=== PATIENT | male | born 1990 | race Caucasian/White ===

== ENCOUNTER 2024-11-08 12:40 | Emergency (ER) | payer OTHER, SELFPAY ==
[2024-11-08 12:51] VITALS: BP 139/83; PULSE 75; RESP 16; TEMP 36.3; O2SAT 100
--- NOTE | 2024-11-08 13:34 | ED_ITS ---
HPI - Extremity Problem General Chief complaint: Extremity Problem,Nontraumatic Stated complaint: R FOOT INFECTION Time Seen by Provider: 11/08/24 13:15 Source: patient and RN notes reviewed Mode of arrival: ambulatory Limitations: no limitations History of Present Illness HPI Narrative: 34-year-old male presents [facility] your for wound check of his right foot. Reason 6 weeks ago he lacerated the bottom of his foot was placed on doxycycline and sutures were placed. Patient was told they were absorbable sutures however some did not dissolve any was pulling a the last few out over the last couple days. Patient has noticed increased redness, swelling, purulent drainage coming from the wound. Patient denies any fevers, body aches, chills, nausea vomiting or any other symptoms. Patient denies any significant medical history. Patient is not diabetic. Related Data Allergies Allergy/AdvReac Type Severity Reaction Status Date / Time No Known Allergies Allergy Verified 11/08/24 12:57 Review of Systems Review of Systems: CONSTITUTIONAL: Denies fever, chills, or sweats. EYES: Denies visual changes, redness, or discharge. ENT: Denies rhinorrhea, congestion, sore throat, or otalgia. CARDIOVASCULAR: Denies chest pain, palpitations, or edema. RESPIRATORY: Denies cough or dyspnea. GASTROINTESTINAL: Denies abdominal pain, nausea, vomiting, or diarrhea. GENITOURINARY: Denies dysuria or hematuria. SKIN: Denies rash or itching. Positive for foot wound. Positive for redness drainage. MUSCULOSKELETAL: Denies back pain, joint pain, or myalgia. NEUROLOGIC: Denies headache, numbness, or weakness. PSYCHIATRIC: Denies anxiety or depression. All other systems reviewed are negative, except as documented in HPI. PMFSH Comments At the time of my signature, I reviewed and agree with the nursing past medical, surgical, social, and family history. There is no relevant family history pertinent to the patient complaint. Exam Narrative: GENERAL: This is a well-nourished, well-developed adult, in no apparent distress. They are non ill-appearing, nontoxic appearing. HEAD: normocephalic, atraumatic. EYES: Sclera clear/white. Conjunctiva normal. Vision is grossly intact. Extraocular movements intact EARS: External ears normal, Hearing grossly intact. NOSE: External nose normal THROAT: Mucous membranes moist, NECK: Neck supple, CARDIOVASCULAR: Regular rate and rhythm RESPIRATORY: Respiratory rate normal, respiratory effort nonlabored, no respiratory distress SKIN: Right foot: There is a healed laceration to the dorsal surface of the distal forefoot under the 1st through 3rd toe. Mild dehiscence to the middle of the wound. There are pustular lesions present. Not actively draining. It is tender to palpate. Mild erythema and swelling. No area of fluctuance, no induration. Wound is well-approximated. Capillary refill less than 2 seconds. Right pedal pulse 2 + palpable. Neurovascular status intact distally. NEURO: awake, alert, and oriented to person, place and time. There were no obvious focal neurologic abnormalities. EXTREMITIES: No joint tenderness, effusion, or edema noted. Course Course Emergency Course: Portions of this record may have been created with voice recognition software Level of Care: [facility] Visit Vital Signs Vital signs: Vital Signs Temperature 97.3 F L 11/08/24 12:51 Pulse Rate 75 11/08/24 12:51 Respiratory Rate 16 11/08/24 12:51 Blood Pressure 139/83 11/08/24 12:51 Pulse Oximetry 100 11/08/24 12:51 Temperature 97.3 F L 11/08/24 12:51 Pulse Rate 75 11/08/24 12:51 Respiratory Rate 16 11/08/24 12:51 Blood Pressure 139/83 11/08/24 12:51 Pulse Oximetry 100 11/08/24 12:51 Reviewed MDM - Extremity (Nontraumatic) MDM Narrative Medical decision making narrative: Laceration appears to a mild wound infection with some dehiscence. Wound appears well approximated. Will treat with cephalexin. Discussed physical exam findings. Advised supportive measures and signs/symptoms to go to the ER. Pt is appropriate for outpt treatment and f/u. Differential Diagnosis Differential diagnosis: Likely other (Cellulitis, wound infection, athlete's foot) Critical Care Time Critical Care Time Critical Care Time: No Discharge Plan Discharge Clinical Impression: Wound infection Patient Disposition: Home Condition: Stable Instructions: Antibiotic Form, Acute Wounds (ED) Additional Instructions: Take the cephalexin as directed. Finish the course completely even if you start to feel better. Wash the foot it with mild soap and water, do not soak or scrub the wound. Avoid dirty water to the wound is healed completely. Keep the wound dry and covered with nonadherent/semi occlusive dressing such as a Band-Aid or gauze. Change dressing daily least once a day or when visibly soiled. May leave it open to the air when your at home. Follow-up PCP in 3-5 days for wound check. If you developed worsening redness, swelling, pain, fevers, nausea, vomiting, body aches, chills, or any serious concerns please go to the ER immediately. Patient Language: [place] Prescriptions: New cephalexin 500 mg capsule 500 mg PO Q6H 7 Days Qty: 28 0RF Follow-up/Referrals: PHYSICIAN,MECHANICAL TECHNICAL SERVICE SPECIALIST [Primary Care Provider, Internal Medicine] Time of Disposition: 13:23
== END 2024-11-08 13:31 | disposition home or self-care (01) ==
DX: S91.311D Laceration without foreign body, right foot, subsequent encounter (principal); L08.9 Local infection of the skin and subcutaneous tissue, unspecified; X58.XXXD Exposure to other specified factors, subsequent encounter
CPT/HCPCS: 99203; G0463